=== PATIENT | female | born 1985 | race Hispanic/Latino ===

== ENCOUNTER 2016-11-09 21:03 | Inpatient (IN) | payer OTHER ==
[2016-11-10] MEDS ORDERED: CERVIDIL VG ONE ×2 (02:03→03:15)
[2016-11-10] MEDS ORDERED: STADOL IV PRN (02:20)
[2016-11-10] MEDS: LACTATED RINGERS 1,000 ML IV SCH ×4 (03:00→18:54)
[2016-11-10 03:27] LABS: Hematocrit 30.1 % (30.3-42.9); Hemoglobin 9.6 gm/dl (10.1-14.3); Mean Corpuscular HGB Conc 32 % (30-34); Mean Corpuscular Volume 74 fl (79-97); Platelet Count 320 K/mm3 (140-440); Red Blood Count 4.07 M/mm3 (3.65-5.03); Red Cell Distribution Width 16.6 % (13.2-15.2); White Blood Count 13.7 K/mm3 (4.5-11.0)
[2016-11-10 03:47] LABS: Mean Corpuscular Hemoglobin 24 pg (28-32)
[2016-11-10] MEDS: CLEOCIN 600 MG/50 mL 600 MG/50 ML BAG IV SCH ×2 (08:10→16:21)
[2016-11-10] MEDS ORDERED: REGLAN IV ONE (18:15)
[2016-11-10] MEDS ORDERED: PEPCID IV ONE (18:15)
[2016-11-10] MEDS ORDERED: BICITRA PO ONE (18:15)
--- NOTE | 2016-11-10 18:21 | History and Physical Report ---
History of Present Illness Date of examination: 11/10/16 Date of admission: 11/09/16 21:03 Chief complaint: I want to have my baby History of present illness: Patient is a 31 year old who presents to L&D at 41 weeks for induction of labor at post dates. Patient has had an uncomplicated course. She started care in the 1st trimester. All labs have been normal. Past History Past Medical History: hypertension Past Surgical History: section, other (LEEP) Social history: single - Obstetrical History Expected Date of Delivery: 11/02/16 Actual Gestation: 41 Week(s) 1 Day(s) : 4 Para: 1 Spontaneous Abortions: 2 Medications and Allergies Allergies Allergy/AdvReac Type Severity Reaction Status Date / Time Penicillins Allergy swelling, Verified 12/15/14 14:44 hives Home Medications Medication Instructions Recorded Confirmed Last Taken Type Depo-Provera (Contraception) 1 IM [id number] 12/23/14 12/23/14 12/07/14 History HYDROcodone/APAP 7.5-325 [Zoe 1 each PO Q6HR PRN #20 tablet 12/23/14 11/10/16 Unknown Rx 7.5/325] Ibuprofen [Motrin] 800 mg PO Q8HR PRN #40 tablet 12/23/14 11/10/16 Unknown Rx Methyldopa [Aldomet] 250 mg PO DAILY 11/10/16 11/10/16 11/09/16 13:00 History Gummies 1 tab PO DAILY 11/10/16 11/10/16 11/09/16 13:00 History Ranitidine HCl [Zantac 150 MG TAB] 150 mg PO DAILY 11/10/16 11/10/16 11/09/16 13 :00 History Active Meds: Active Medications Butorphanol Tartrate (Stadol) 2 mg IV Q2H PRN PRN Reason: Labor Pain Lactated Ringer's (Lactated Ringers) 1,000 mls @ 125 mls/hr IV DIRECT LORRAINE Last Admin: 11/10/16 15:16 Dose: 125 mls/hr Clindamycin HCl (Cleocin 600 Mg/50 Ml) 600 mg in 50 mls @ 100 mls/hr IV Q8H LORRAINE PRN Reason: Protocol Last Admin: 11/10/16 16:21 Dose: 100 mls/hr - Vital Signs Vital signs: Vital Signs Pulse BP Pulse Ox 121 H 121/67 96 11/09/16 23:43 11/09/16 23:43 11/09/16 23:43 Temp Pulse Resp BP Pulse Ox 97.0 F L 99 H 20 118/79 96 11/10/16 16:34 11/10/16 17:43 11/10/16 16:34 11/10/16 17:43 11/10/16 17:28 - Physical Exam Breasts: Positive: deferred Cardiovascular: Regular rate, Normal S1, Normal S2 Lungs: Positive: Clear to auscultation, Normal air movement Abdomen: Positive: normal appearance, soft, normal bowel sounds Genitourinary (Female): Positive: normal external genitalia, normal perenium Vagina: Positive: normal moisture - Obstetrical Cervical Dilatation: 1 Cervical Effacement Percentage: 50 station: -3 Uterine Contraction Pattern: Irregular Results Result Diagrams: 11/10/16 02:48 Abnormal lab results 11/10/16 Range/Units 02:48 WBC 13.7 H (4.5-11.0) K/mm3 Hgb 9.6 L (10.1-14.3) gm/dl Hct 30.1 L (30.3-42.9) % MCV 74 L (79-97) fl MCH 24 L (28-32) pg RDW 16.6 H (13.2-15.2) % All other labs normal. Assessment and Plan IUP at 41 weeks for induction of labor with hope to . Will start with Cervidil. overnight. Will monitor.
--- NOTE | 2016-11-10 18:23 | Anesthesia Day of Surgery ---
Anesthesia Day of Surgery - Day of Surgery Patient Examined: Yes Patient H&P Reviewed: Yes Patient is NPO: Yes
--- NOTE | 2016-11-10 18:23 | Anesthesia Consultation ---
Anesthesia Consult and Med Hx Date of service: 11/10/16 - Airway Anesthetic Teeth Evaluation: Good ROM Head & Neck: Adequate Mental/Hyoid Distance: Adequate Mallampati Class: Class II Intubation Access Assessment: Probably Good - Pulmonary Exam CTA: Yes - Cardiac Exam Cardiac Exam: RRR - Pre-Operative Health Status ASA Pre-Surgery Classification: ASA2 Proposed Anesthetic Plan: Spinal - Pulmonary Hx Smoking: Yes (1/2 PPD, now less) Hx Asthma: No COPD: No Hx Pneumonia: No - Cardiovascular System Hx Hypertension: No - Central Nervous System Hx Seizures: No Hx Psychiatric Problems: No - Gastrointestinal Hx Gastroesophageal Reflux Disease: Yes (During only) - Endocrine Hx Renal Disease: No Hx End Stage Renal Disease: No Hx Non-Insulin Dependent Diabetes: No Hx Hypothyroidism: No Hx Hyperthyroidism: No - Hematic Hx Anemia: No Hx Sickle Cell Disease: No - Other Systems Hx Alcohol Use: No Hx Substance Use: No Hx Cancer: No Hx Obesity: Yes (BMI= 40)
--- NOTE | 2016-11-10 18:30 | Event Note ---
Date: 11/10/16 In to see patient after cervidil removed. Was hoping to arom but head still very high and patient only dilated to one cm. Had discussion with patient and her partner about unlikliness of descent and successful . Asked patient to consider if she still wants to pursue GEETA with essentially no descent at 41 weeks. After discussion, patient decided to proceed with c- section. Will prepare staff and proceed to OR.,
[2016-11-10] MEDS ORDERED: MORPHINE ONE (18:52)
[2016-11-10] MEDS ORDERED: PITOCin/NS 20 UNIT/1000ML DRIP 20 UNITS/1,000 ML BAG IV SCH ×2 (19:00→22:19)
[2016-11-10] MEDS ORDERED: LACTATED RINGERS 1,000 ML IV SCH (19:00)
[2016-11-10] MEDS ORDERED: NACL 0.9% IR ONE (19:15)
[2016-11-10] MEDS ORDERED: WATER FOR IRRIG STERILE IR ONE (19:15)
[2016-11-10] MEDS ORDERED: NEO SYNEPHRINE/NS Syringe(OR USE) IV ONE (19:30)
--- NOTE | 2016-11-10 20:25 | Procedure Note ---
OB Delivery Note - Delivery Date of Delivery: 11/10/16 Surgeon: SERAFIN LAW Estimated blood loss: other (800) - Section Preop diagnosis: repeat , other (failed ) Postop diagnosis: same (with uterine torsion) section procedure: repeat low transverse Disposition: PACU Complications: none Narrative: see op report - A at 1 minute: 9 at 5 minutes: 9 Gender: Female (7 pounds 5 ounces)
[2016-11-10] MEDS ORDERED: DILAUDID IV PRN (20:32)
[2016-11-10] MEDS ORDERED: NARCAN 0.4 MG/1 ML IV PRN ×2 (20:32→22:19)
[2016-11-10] MEDS ORDERED: BENADRYL IV PRN (20:32)
[2016-11-10] MEDS ORDERED: ZOFRAN IV PRN ×2 (20:32→22:19)
[2016-11-10] MEDS ORDERED: TORADOL IV PRN (20:32)
[2016-11-10] MEDS ORDERED: SODIUM CHLORIDE FLUSH SYRINGE 10 ML IV NR ×2 (21:00→22:19)
[2016-11-10] MEDS ORDERED: TUCKS PAD TP PRN (22:19)
[2016-11-10] MEDS ORDERED: MORPHINE IV PRN (22:19)
[2016-11-10] MEDS ORDERED: LANSINOH TP PRN (22:19)
[2016-11-10] MEDS ORDERED: MYLICON PO PRN (22:19)
[2016-11-11] MEDS: D5LR 1,000 ML IV SCH ×2 (05:08→21:02)
--- NOTE | 2016-11-11 08:07 | Progress Note ---
Assessment and Plan - Patient Problems (1) Previous delivery affecting Current Visit: Yes Status: Acute Plan to address problem: Routine postoperative care Subjective - Subjective Date of service: 11/11/16 Interval history: Patient reports routine postoperative pain. She states she has a history of a wound infection after her previous delivery. She denies any nausea and vomiting Patient reports: pain well controlled, no appetite normal, no voiding normally [place]: doing well Objective - Vital Signs Latest vital signs: Vital Signs Temp Pulse Resp BP BP Pulse Ox 11/11/16 05:30 98.8 F 110 H 120/65 11/11/16 01:15 97.7 F 106 H 18 122/70 11/10/16 21:50 97.4 F L 91 H 20 120/65 11/10/16 21:25 97.6 F 15 114/66 99 11/10/16 21:20 103 H 23 114/66 98 11/10/16 21:15 89 27 H 109/58 98 11/10/16 21:11 92 H 15 106/49 98 11/10/16 21:05 89 22 116/65 96 11/10/16 21:01 86 19 108/60 97 11/10/16 20:55 92 H 13 112/52 98 11/10/16 20:50 82 13 112/52 98 11/10/16 20:45 93 H 20 104/52 98 11/10/16 20:41 89 12 104/52 98 11/10/16 20:35 96 H 11 L 100/45 97 11/10/16 20:30 97 H 15 102/53 98 11/10/16 20:25 97.9 F 99 11/10/16 18:43 99 H 121/78 11/10/16 17:43 99 H 118/79 11/10/16 17:28 117 H 96 11/10/16 17:22 105 H 97 11/10/16 17:17 102 H 95 11/10/16 17:12 105 H 97 11/10/16 17:07 96 H 97 11/10/16 17:02 99 H 96 11/10/16 16:57 100 H 97 11/10/16 16:52 103 H 96 11/10/16 16:47 99 H 98 11/10/16 16:43 88 123/67 11/10/16 16:42 92 H 98 11/10/16 16:39 101 H 84 11/10/16 16:38 106 H 122/79 11/10/16 16:37 101 H 98 11/10/16 16:34 97.0 F L 114 H 20 122/79 97 11/10/16 14:44 115 H 114/83 11/10/16 14:03 105 H 97 11/10/16 13:58 98 H 97 11/10/16 13:53 99 H 97 11/10/16 13:46 101 H 96 11/10/16 13:43 99 H 112/69 94 11/10/16 13:41 99 H 96 11/10/16 13:36 103 H 97 11/10/16 13:31 97 H 97 11/10/16 13:25 91 H 97 11/10/16 13:21 98 H 97 11/10/16 13:16 108 H 96 11/10/16 13:11 102 H 96 11/10/16 13:06 101 H 97 11/10/16 13:01 98 H 96 11/10/16 12:56 95 H 96 11/10/16 12:51 98 H 96 11/10/16 12:46 94 H 97 11/10/16 12:43 96 H 105/63 93 11/10/16 12:41 101 H 95 11/10/16 12:36 93 H 96 11/10/16 12:31 101 H 95 11/10/16 12:26 91 H 96 11/10/16 12:21 100 H 95 11/10/16 12:16 102 H 96 11/10/16 12:11 103 H 97 11/10/16 12:10 108 H 106/70 11/10/16 12:07 97.0 F L 96 H 20 106/70 96 11/10/16 12:06 96 H 96 11/10/16 12:01 103 H 96 11/10/16 11:56 100 H 96 11/10/16 11:51 99 H 96 11/10/16 11:45 106 H 97 11/10/16 11:44 100 H 112/69 11/10/16 11:41 117 H 94 11/10/16 11:36 102 H 96 11/10/16 11:31 101 H 96 11/10/16 11:26 105 H 96 11/10/16 11:21 106 H 96 11/10/16 11:16 98 H 96 11/10/16 11:10 105 H 97 11/10/16 11:06 102 H 97 11/10/16 11:01 99 H 97 11/10/16 10:56 95 H 98 11/10/16 10:51 94 H 97 11/10/16 10:46 95 H 97 11/10/16 10:43 96 H 108/61 11/10/16 10:40 101 H 98 11/10/16 10:29 96 H 98 11/10/16 10:24 100 H 97 11/10/16 10:19 103 H 97 11/10/16 10:13 112 H 98 11/10/16 10:08 95 H 97 11/10/16 10:03 101 H 98 11/10/16 09:58 91 H 98 11/10/16 09:53 94 H 97 11/10/16 09:48 95 H 96 11/10/16 09:43 99 H 108/64 96 11/10/16 09:38 102 H 96 11/10/16 09:33 90 96 11/10/16 09:28 99 H 96 11/10/16 09:23 97 H 96 11/10/16 09:18 101 H 96 11/10/16 09:13 98 H 96 11/10/16 09:08 98 H 96 11/10/16 09:03 98 H 96 11/10/16 08:58 93 H 96 11/10/16 08:53 97 H 96 11/10/16 08:48 94 H 97 11/10/16 08:43 96 H 104/64 97 11/10/16 08:38 105 H 97 11/10/16 08:33 107 H 97 11/10/16 08:28 95 H 98 11/10/16 08:23 100 H 97 11/10/16 08:18 94 H 97 11/10/16 08:13 104 H 97 11/10/16 08:08 92 H 97 Intake and Output 11/10/16 11/11/16 11/11/16 22:59 06:59 14:59 Intake Total 2984.167 120 Output Total 1000 300 Balance 1983.167 -180 Intake: IV 4.167 Lactated Ringers 1,000 ml 454.167 @ 125 mls/hr IV DIRECT LORRAINE Rx#:[id number] Oral 810 120 Intake, Free Water 120 Output: Urine 1000 300 Indwelling Catheter 500 300 Uretheral (Poe) 150 Other: Total, Intake Amount 360 120 Total, Output Amount 500 300 Estimated Blood Loss 800 - Exam Abdomen: Present: normal appearance, soft Incision: Present: dressed
[2016-11-11 08:42] LABS: Hematocrit 28.9 % (30.3-42.9)
[2016-11-11] MEDS: PRENATAL VITAMIN PO SCH (10:58)
[2016-11-11] MEDS: PERCOCET 5/325 PO PRN ×2 (10:58→16:40)
[2016-11-11] MEDS: FEOSOL PO SCH (10:58)
--- NOTE | 2016-11-11 16:24 | Progress Note ---
Subjective Date of service: 11/11/16 Interval history: Doing well. No anesthetic related complaints. Objective - Constitutional Vitals: Vital Signs - 12hr 11/11/16 11/11/16 05:30 10:13 Temperature 98.8 F 98.0 F Pulse Rate 110 H 113 H Respiratory 20 Rate Blood Pressure 95/51 Blood Pressure 120/65 [Right] O2 Sat by Pulse 94 Oximetry - Labs CBC & Chem 7: 11/11/16 08:22 Labs: Abnormal lab results 11/11/16 Range/Units 08:22 Hgb 9.0 L (10.1-14.3) gm/dl Hct 28.9 L (30.3-42.9) %
[2016-11-11] MEDS: MOTRIN PO PRN (16:41)
[2016-11-11] MEDS ORDERED: BOOSTRIX IM ONE (21:30)
[2016-11-12] MEDS ORDERED: BOOSTRIX IM ONE (06:00)
[2016-11-12] MEDS: MOTRIN PO PRN ×2 (08:43→17:26)
--- NOTE | 2016-11-12 11:12 | Progress Note ---
Assessment and Plan - Patient Problems (1) Previous delivery affecting Current Visit: Yes Status: Acute Plan to address problem: routine postoperative care discussed wound care at home discharge tomorrow Subjective - Subjective Date of service: 11/12/16 Interval history: Patient states she tolerated her diet. Pain is controlled. Dressing removed today with slight saturation. Reports being able to void Patient reports: appetite normal, voiding normally, pain well controlled [place]: doing well Objective - Vital Signs Latest vital signs: Vital Signs Temp Pulse Resp BP Pulse Ox 11/12/16 08:43 97.6 F 98 H 18 122/69 97 11/12/16 00:00 98.6 F 77 16 122/71 11/11/16 17:00 98.3 F 100 H 18 111/61 97 Intake and Output 11/11/16 11/12/16 11/12/16 22:59 06:59 14:59 Intake Total 600 850 360 Output Total 450 1300 700 Balance 150 -450 -340 Intake: Oral 600 250 360 Intake, Free Water 600 Output: Urine 450 1300 700 Indwelling Catheter 450 Void 1300 700 Other: Total, Intake Amount 360 250 120 Total, Output Amount 450 800 700 - Exam Abdomen: Present: normal appearance, soft Incision: Present: intact. Absent: dry
[2016-11-12] MEDS: PERCOCET 5/325 PO PRN (13:58)
[2016-11-12] MEDS: PRENATAL VITAMIN PO SCH (14:13)
[2016-11-12] MEDS: FEOSOL PO SCH (14:13)
[2016-11-13] MEDS: MOTRIN PO PRN (00:02)
[2016-11-13] MEDS: PERCOCET 5/325 PO PRN ×2 (00:02→10:51)
[2016-11-13 09:02] VITALS: BP 94/55
[2016-11-13] MEDS: FEOSOL PO SCH (10:51)
[2016-11-13] MEDS: PRENATAL VITAMIN PO SCH (10:51)
--- NOTE | 2016-11-13 11:14 | Discharge Summary ---
Providers - Providers Date of Admission: 11/09/16 21:03 Date of discharge: 11/13/16 Attending physician: SERAFIN LAW Primary care physician: SERAFIN LAW Hospitalization Reason for admission: induction of labor Delivery: Procedure: repeat low transverse Incision: normal, dry, intact Discharge diagnosis: IUP at term delivered baby: female Condition at discharge: Good Disposition: DC-01 TO HOME OR SELFCARE Plan - Discharge Medications Prescriptions: Ibuprofen [Motrin] 800 mg PO Q8HR PRN #60 tablet PRN Reason: Pain Oxycodone HCl/Acetaminophen [Percocet 7.5/325 mg] 1 each PO Q6HR PRN #45 tablet PRN Reason: Pain - Provider Discharge Summary Activity: routine, no sex for 6 weeks, no heavy lifting 4 weeks, no strenuous exercise Diet: routine Instructions: routine Additional instructions: [] Smoking cessation referral if applicable(refer to patient education folder for contact #) [] Refer to [facility]'s [facility] Booklet Call your doctor immediately for: * Fever > 100.5 * Heavy vaginal bleeding ( >1 pad per hour) * Severe persistent headache * Shortness of breath * Reddened, hot, painful area to leg or breast * Drainage or odor from incision. * Keep incision clean and dry at all times and follow doctor's instructions regarding bathing/showering - Follow up plan Follow up: SERAFIN LAW MD [Primary Care Provider] - 7 Days
== END 2016-11-13 15:05 | disposition home or self-care (01) | DRG 765 ==
LOC: APU 21:03 → LD 23:23 → OB 11-10 22:16
PROVIDERS: ADMIT Obstetrics & Gynecology; ATTEND Obstetrics & Gynecology
PROC: 10D00Z1 Extraction of Products of Conception, Low, Open Approach (ICD-10-PCS; principal; 2016-11-10)
PROC: 3E0P7GC Introduction of Other Therapeutic Substance into Female Reproductive, Via Natural or Artificial Opening (ICD-10-PCS; 2016-11-10)
PROC: 3E0234Z Introduction of Serum, Toxoid and Vaccine into Muscle, Percutaneous Approach (ICD-10-PCS; 2016-11-12)
DX: O34.211 Maternal care for low transverse scar from previous cesarean delivery (principal); O10.92 Unspecified pre-existing hypertension complicating childbirth; Z3A.41 41 weeks gestation of pregnancy; Z37.0 Single live birth; O48.0 Post-term pregnancy; O99.334 Smoking (tobacco) complicating childbirth; F17.290 Nicotine dependence, other tobacco product, uncomplicated; O99.62 Diseases of the digestive system complicating childbirth; K21.9 Gastro-esophageal reflux disease without esophagitis; Z23 Encounter for immunization; Z88.0 Allergy status to penicillin; O66.41 Failed attempted vaginal birth after previous cesarean delivery
CPT/HCPCS: 36415; 59200; 85014; 85018; 85027; 86850; 86900; 86901; 90471; 90715; 99211; A6250; G0463; J2270; J2370; J2405; J2590; J2765; J7120; J7121